=== PATIENT | female | born 1930 | race Caucasian/White ===

== ENCOUNTER → 2017-06-09 | Outpatient (CLI) | payer OTHER ==
[~2017-06-09] MED LIST: ABAC300; ASPI325 PO; BACI500TO OD; BGALA3.3 PO; CALCAVITD PO; CEPH500 PO; CIPR500 PO; CYAN1000 PO; DIAZ2 PO; GLIM2 PO; HYDCHL12.5 PO; LEVFLO500 PO; LEVSOD50 PO; METO50ER PO; NEOPOLGRAS OD; ONDA4 PO; ONDA4ODT PO; ONDA8ODT MM; PSYL5.85P PO; PYRI100 PO; SIME80CH PO; TOUJEO SOL300 UNIT/1 SC; TRAM50 PO; Tessalon200 MG PO; Zofran4 MG PO
== END | disposition home or self-care (01) ==
LOC: PLD 08:36 → LAB SHORT 08:36
DX: D48.5 Neoplasm of uncertain behavior of skin (principal)
CPT/HCPCS: 88304